=== PATIENT | female | born 1965 ===

== ENCOUNTER 2017-09-22 10:52 | Emergency (ER) | payer SELFPAY ==
--- NOTE | 2017-09-22 12:26 | UC ---
Eye Complaint HPI - HPI Summary HPI Summary: 51 yo female with waxing and waning bilat eye redness and itching some relief with zaditor and zyrtec now worse with goopy am drainage no pain or photophobia - History of Current Complaint Chief Complaint: UCEye Stated Complaint: EYE IRRITATION Time Seen by Provider: 09/22/17 12:07 Hx Obtained From: Patient Onset/Duration: Gradual Onset, Lasting Weeks Timing: Constant Severity Initially: Mild Severity Currently: Moderate Pain Intensity: 1 Pain Scale Used: 0-10 Numeric Location of Injury: Conjunctiva, Other - lids Aggravating Factor(s): Nothing Alleviating Factor(s): Nothing Associated Signs And Symptoms: Positive: Drainage (Purulent), Swelling - Allergies/Home Medications Allergies/Adverse Reactions: Allergies Allergy/AdvReac Type Severity Reaction Status Date / Time No Known Allergies Allergy Verified 09/22/17 11:47 PMH/Surg Hx/FS Hx/Imm Hx Previously Healthy: Yes - Surgical History Surgical History: None Surgery Procedure, Year, and Place: fibroid removed - Social History Alcohol Use: None Substance Use Type: None Smoking Status (MU): Never Smoked Tobacco Review of Systems Constitutional: Negative Skin: Negative Eyes: Drainage, Eye Redness ENT: Negative Respiratory: Negative Cardiovascular: Negative Gastrointestinal: Negative Genitourinary: Negative Motor: Negative Neurovascular: Negative Musculoskeletal: Negative Neurological: Negative Psychological: Negative Is Patient Immunocompromised?: No All Other Systems Reviewed And Are Negative: Yes Physical Exam Triage Information Reviewed: Yes Appearance: Well-Appearing, No Pain Distress, Well-Nourished Vital Signs: Initial Vital Signs Temp 98 F 09/22/17 11:47 Pulse 74 09/22/17 11:47 Resp 16 09/22/17 11:47 Pulse Ox 100 09/22/17 11:47 Eyes: Positive: Conjunctiva Inflamed, Discharge, Other: - bilat lid edema and redness ENT Exam: Normal Dental Exam: Normal Respiratory: Positive: Lungs clear, Normal breath sounds, No respiratory distress, No accessory muscle use Cardiovascular: Positive: RRR, No Murmur Neurological: Positive: Alert Psychological Exam: Normal Skin Exam: Normal Eye Complaint Course/Dx - Differential Dx/Diagnosis Provider Diagnoses: bilateral conjunctivitis. ?bacterial vs allergic Discharge - Discharge Plan Condition: Stable Disposition: HOME Prescriptions: Polymyx/Trimethoprim OPTH* [Polytrim OPHTH*] 1 - 2 drop BOTH EYES QID #1 btl Patient Education Materials: Conjunctivitis (ED) Referrals: Kuldeep Brady MD [Medical Doctor] - If Needed Chau Vicente MD [Medical Doctor] - If Needed Additional Instructions: continue zaditor see one of the eye doctors listed if not improved I am unsure if you have allergic conjunctivitis or bacterial
== END 2017-09-22 12:25 | disposition home or self-care (01) ==
LOC: UCEAST 10:52
DX: H10.9 Unspecified conjunctivitis (principal)
CPT/HCPCS: 99202; G0463

== ENCOUNTER 2018-11-11 09:33 | Emergency (ER) | payer OTHER ==
[2018-11-11 10:50] VITALS: BP 109/61
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
[2018-11-11] MEDS ORDERED: Ketorolac INJ* 30 MG/ML 1 ML VIAL IM ONE (12:14)
[2018-11-11] MEDS ORDERED: Famotidine TAB* 20 MG PO ONE (12:14)
== END 2018-11-11 14:02 | disposition home or self-care (01) ==
LOC: UCEAST 09:33
DX: S43.401A Unspecified sprain of right shoulder joint, initial encounter (principal); S83.91XA Sprain of unspecified site of right knee, initial encounter; M50.30 Other cervical disc degeneration, unspecified cervical region; M51.36 Other intervertebral disc degeneration, lumbar region; M62.838 Other muscle spasm; V49.40XA Driver injured in collision with unspecified motor vehicles in traffic accident, initial encounter; Y92.9 Unspecified place or not applicable
CPT/HCPCS: 72050; 72110; 96372; 99213; A9270-GY; G0463; J1885